=== PATIENT | male | born 1940 | race Caucasian/White ===

== ENCOUNTER → 2018-02-04 | Outpatient (CLI) | payer BC ==
--- NOTE | 2018-02-04 12:04 | DIAGNOSTIC IMAGING REPORT ---
VIDEO SWALLOW CLINICAL HISTORY: EPIGASTRIC PAIN, Gastroparesis COMPARISON STUDY: No previous studies for comparison. Fluoroscopy time: 1.7 minutes. FINDINGS: No tracheal aspiration was identified within liquids, nectar thick liquids, pudding or crackers with paste. Swallowing mechanism was intact. No was made of moderate esophageal dysmotility. IMPRESSION: 1. No tracheal aspiration. Intact swallowing mechanism. 2. Moderate esophageal dysmotility. 3. Full recommendations by speech pathology to follow. Electronically signed by: Pradip Houston M.D. 02/04/2018 12:02 PM Dictated Date/Time: 02/04/2018 12:01 PM
--- NOTE | 2018-02-04 12:07 | SWALLOWING EVALUATION ---
HISTORY: This 77 year-old man, from home, was referred for a VFSS at [facility] secondary to gastric pain. The patient had no information available in regards to a PMH significant however orders and pt. reports indicate GERD, Epigastric pain, gastroperisis, dysphagia, and Martell's esophagus. Pt's current diet level is regular with thin liquids however he reports that he has significant difficulty with intake and that after small amounts of intake he often can not eat for several hours secondary to discomfort and pain. Pt. reports these symptoms started in Oct and are increasingly becoming worse. PROCEDURE: The patient was seen in the Radiology Department of [facility] for the VFSS. Cursory examination of the oral cavity revealed upper and lower dentition. Movement of the articulators was functional. The patient was seated upright on a chair and was viewed in the Lateral and A-P planes. The patient was seated on a standard chair and was viewed in both the Anterior-Posterior (A-P) and Lateral planes. Volitional phonation exercises completed in the A-P plane revealed bilateral vocal fold movement and vocal intensity within functional limits. In the lateral plane, the patient was given the following barium-infused boluses: 1 tsp thin barium with oral hold 1x, self presented single cup swallow-thin barium 1x, self presented serial cup swallow 1x. 1 tsp nectar thick barium with oral hold 1x, self presented single cup swallow- nectar thick barium 1x, self presented serial cup swallows 1x. Barium pudding 1x, barium coated cracker 1x. Esophageal scan was completed with 1 tsp barim pudding. RESULTS: Oral Phase: Pt. had no labial escape of liquid or food items tested. Pt. demonstrated a cohesive bolus between tongue and palatal seal. Timely and efficient chewing and mashing was observed with all consistencies as well as brisk tongue motion and complete oral clearance. Initiation of pharyngeal swallow began with bolus head in the vallecuale. Overall WFL. Pharyngeal Phase: Soft Palate Elevation was complete for all boluses. Laryngeal elevation was slightly reduced however movement of thyroid cartilage with complete approximation of arytenoids to epiglottic base. Anterior Hyoid excursion was WFL and complete epiglottic inversion noted. Laryngeal Vestibular closure was complete and a thin column of barium noted in laryngeal vestibule as well as on the valleculae. This was cleared with double swallow. Tongue base retraction was noted with all consistencies and tongue base made effective contact with posterior pharyngeal wall throughout study. Mild pharyngeal residue was observed and able to be cleared with double swallow. Overall WFL for pharyngeal phase of the swallow. Pt. did NOT aspirate or penetrate thins or nectar food items presented. Esophageal Phase: Opening and closing of the UES noted. Pt. presented with moderate Esophageal dysfunction. RADIOLOGY REPORT FINDINGS: No tracheal aspiration was identified within liquids, nectar thick liquids, pudding or crackers with paste. Swallowing mechanism was intact. No was made of moderate esophageal dysmotility. IMPRESSION: 1. No tracheal aspiration. Intact swallowing mechanism. 2. Moderate esophageal dysmotility. 3. Full recommendations by speech pathology to follow. SUMMARY/RECOMMENDATIONS: Overall pt. presented as WFL for oral-pharyngeal stages of the swallow. Notable Esophageal dysmotility. Recommendin. Regular "SLIPPERY" diet with thin liquids Written diet recommendations given 2. Safe Swallow Strategies - SINGLE-SMALL sips, small bites, slow rate 3. GERD Precautions - Upright for all meals and 20 min after, alternate consistencies, follow food suggestions given, elevate head of bed at least 30 degrees at all times 4. Completion of Barium Swallow to further evaluate esophageal dysfunction. 5. Thank you for referral of this patient. Please contact me at if any additional information is needed.
== END | disposition home or self-care (01) ==
LOC: C.RAD 10:48
PROVIDERS: ATTEND Internal Medicine Gastroenterology
DX: K22.8 Other specified diseases of esophagus (principal); R10.10 Upper abdominal pain, unspecified; R13.10 Dysphagia, unspecified; K31.84 Gastroparesis

== ENCOUNTER → 2018-02-18 | Outpatient (CLI) | payer BC ==
[~2018-02-18] MED LIST: SINCALIDE INJ 1.36 MCG in SODIUM CHLORIDE 0.9% 100ML 100 ML IV SCH
--- NOTE | 2018-02-18 12:57 | DIAGNOSTIC IMAGING REPORT ---
NUCLEAR MEDICINE HEPATOBILIARY SCAN WITH GALLBLADDER EJECTION FRACTION CLINICAL HISTORY: Abdominal pain, nausea and vomiting. COMPARISON: None TECHNIQUE: 5.8 mCi of technetium 99m Choletec IV was injected at 10:25 AM on February 18, 2018. Immediately following injection, imaging of the abdomen was carried out for 60 minutes in the anterior projection. At this time, 1.36 mcg of Sincalide was injected IV as per protocol. Imaging was performed for an additional 45 minutes to estimate a gallbladder ejection fraction. FINDINGS: Hepatic uptake of radiotracer is prompt and homogeneous. Activity is identified within the common bile duct at 15 minutes, the gallbladder at 25 minutes and the small bowel at 30 minutes. Following injection of sincalide, normal gallbladder emptying was noted within ejection fraction of 84%. Normal is greater than 30-35%. IMPRESSION: 1. Normal hepatobiliary scan. No evidence of acute or chronic cholecystitis. 2. Normal gallbladder ejection fraction of 84%. Electronically signed by: Pradip Houston M.D. 02/18/2018 12:56 PM Dictated Date/Time: 02/18/2018 12:54 PM
== END | disposition home or self-care (01) ==
LOC: C.NUCL 10:00
PROVIDERS: ATTEND Internal Medicine Gastroenterology
DX: R10.9 Unspecified abdominal pain (principal); Z88.8 Allergy status to other drugs, medicaments and biological substances